=== PATIENT | female | born 1965 | race Caucasian/White ===

== ENCOUNTER 2017-07-26 02:58 | Inpatient (IN) | payer OTHER ==
[2017-07-26] MEDS ORDERED: Ondansetron 4 MG/2 ML SDV IVPUSH ONE (03:32)
[2017-07-26] MEDS ORDERED: HYDROmorphone 0.5 MG/0.5 ML Syringe IVPUSH ONE (03:32)
--- NOTE | 2017-07-26 03:38 | EDM.PDOC ---
ED HPI GENERAL MEDICAL PROBLEM - General Chief Complaint: Abdominal Pain Stated Complaint: ABD PAIN Time Seen by Provider: 07/26/17 03:20 Source of Information: Reports: Patient History Limitations: Reports: No Limitations - History of Present Illness INITIAL COMMENTS - FREE TEXT/NARRATIVE: 51-year-old female with upper abdominal pain, fairly severe for the past 4-6 hours. This is the third episode of pain she's had in the last month, the first being 3 weeks ago. It lasted several hours, she vomited twice and the pain resolved. 5 days ago she had a fairly extended period of pain where she vomited several times but the pain did not go away until it slowly disappeared in the morning. Tonight the pain recurs, is fairly significant and is persistent. She has vomited twice tonight. No fevers or chills, no radiation of pain to the back or shoulder. No previous abdominal surgeries. No shortness of breath or urinary symptoms. Pain starts usually generalized and then intensifies into her upper abdomen. Onset: Gradual Duration: Hour(s): (6 hours ago) Location: Reports: Abdomen Quality: Reports: Ache, Stabbing Severity: Moderate Improves with: Reports: None Worsens with: Reports: None Associated Symptoms: Reports: Nausea/Vomiting Abdominal Pain Score (Numeric/FACES): 8 - Related Data Allergies Allergy/AdvReac Type Severity Reaction Status Date / Time No Known Allergies Allergy Verified 07/26/17 03:11 Home Meds: Home Meds Calcium Carbonate [Calcium] 600 mg PO DAILY 07/26/17 [History] Levothyroxine Sodium [Synthroid] 75 mcg PO DAILY 07/26/17 [History] Past Medical History HEENT History: Reports: Impaired Vision Respiratory History: Reports: Asthma BILLING TYPIST History: Reports: Endocrine/Metabolic History: Reports: Hypothyroidism Dermatologic History: Reports: Eczema - Infectious Disease History Infectious Disease History: Reports: Chicken Pox Social & Family History - Tobacco Use Smoking Status *Q: Never Smoker Second Hand Smoke Exposure: No - Caffeine Use Caffeine Use: Reports: Coffee, Soda - Recreational Drug Use Recreational Drug Use: No ED ROS GENERAL - Review of Systems Review Of Systems: See Below Constitutional: Denies: Fever, Chills Respiratory: Denies: Shortness of Breath, Hemoptysis GI/Abdominal: Reports: Abdominal Pain, Nausea, Vomiting. Denies: Constipation, Diarrhea : Reports: No Symptoms Musculoskeletal: Reports: No Symptoms Skin: Reports: No Symptoms Neurological: Reports: No Symptoms Psychiatric: Reports: No Symptoms ED EXAM, GI/ABD - Physical Exam Exam: See Below Exam Limited By: No Limitations General Appearance: Alert, Mild Distress Eyes: Bilateral: Normal Appearance (No jaundice) Respiratory/Chest: No Respiratory Distress, Lungs Clear Cardiovascular: Regular Rate, Rhythm GI/Abdominal Exam: Soft, Tender (She is very tender to palpation in the right upper quadrant, would consider a positive Ly's sign). No: Normal Bowel Sounds (Bowel sounds are hypoactive) Back Exam: No: CVA Tenderness (R), CVA Tenderness (L) Neurological: Alert, Oriented Psychiatric: Anxious Skin Exam: Warm, Dry Course - Vital Signs Last Recorded V/S: Last Vital Signs Temp 98.5 F 07/27/17 14:56 Pulse 61 07/27/17 14:56 Resp 18 07/27/17 14:56 BP 130/82 07/27/17 14:56 Pulse Ox 97 07/27/17 14:56 - Orders/Labs/Meds Orders: Medication Orders Acetaminophen (Tylenol) 650 mg PO Q4H PRN PRN Reason: Pain Last Admin: 07/26/17 10:58 Dose: 650 mg Hydrocodone Bitart/Acetaminophen (Printer 325-5 Mg) 1 - 2 tab PO Q4H PRN PRN Reason: PAIN Hydromorphone HCl (Dilaudid Photogrammetric Surveyor 15 Mg In Ns 30 Ml) 0 mg IV ASDIRECTED PRN; Protocol PRN Reason: LEACH RUNNER PAIN CONTROL Last Admin: 07/26/17 15:03 Dose: 15 mg Sodium Chloride (Normal Saline) 1,000 mls @ 150 mls/hr IV ASDIRECTED RAFA Last Admin: 07/26/17 03:50 Dose: 150 mls/hr Dextrose/Lactated Ringer's (Dextrose 5%-Lactated Ringers) 1,000 mls @ 100 mls/ hr IV ASDIRECTED RAFA Last Admin: 07/27/17 07:14 Dose: 100 mls/hr Infusion: 07/27/17 04:55 Dose: 100 mls/hr Admin: 07/26/17 18:55 Dose: 100 mls/hr Infusion: 07/26/17 18:00 Dose: 100 mls/hr Admin: 07/26/17 08:00 Dose: 100 mls/hr Ampicillin Sodium/Sulbactam (Sodium 3 gm/ Sodium Chloride) 100 mls @ 200 mls/ hr IV Q6H [facility] Last Admin: 07/27/17 16:12 Dose: 200 mls/hr Admin: 07/27/17 09:00 Dose: 200 mls/hr Admin: 07/27/17 04:48 Dose: 200 mls/hr Admin: 07/26/17 22:02 Dose: 200 mls/hr Admin: 07/26/17 15:43 Dose: 200 mls/hr Admin: 07/26/17 10:36 Dose: 200 mls/hr Aztreonam/Dextrose 1 gm/ (Premix) 50 mls @ 100 mls/hr IV Q8H [facility] Last Admin: 07/27/17 10:52 Dose: 100 mls/hr Infusion: 07/27/17 04:29 Dose: 100 mls/hr Admin: 07/27/17 03:59 Dose: 100 mls/hr Infusion: 07/26/17 18:40 Dose: 100 mls/hr Admin: 07/26/17 18:10 Dose: 100 mls/hr Infusion: 07/26/17 11:48 Dose: 100 mls/hr Admin: 07/26/17 11:18 Dose: 100 mls/hr Metoclopramide HCl (Reglan) 10 mg IVPUSH Q6H [facility] Last Admin: 07/27/17 12:04 Dose: 10 mg Naloxone HCl (Narcan) 0.1 mg IV ASDIRECTED PRN PRN Reason: decreased respiratory rate Scopalamine Patch (Check) 0 each TOP DAILY [facility] Ondansetron HCl (Zofran) 4 mg IVPUSH Q4H PRN PRN Reason: NAUSEA Last Admin: 07/27/17 04:04 Dose: 4 mg Pantoprazole Sodium (Protonix Iv) 40 mg IV Q24H [facility] Last Admin: 07/27/17 10:52 Dose: 40 mg Admin: 07/26/17 10:41 Dose: 40 mg Scopolamine (Transderm-Scop) 1.5 mg TOP Q72H [facility] Labs: Laboratory Tests 07/26/17 07/26/17 Range/Units 03:43 03:43 WBC 10.7 (4.5-11.0) K/uL RBC 4.67 (3.30-5.50) M/uL Hgb 14.6 (12.0-15.0) g/dL Hct 42.9 (36.0-48.0) % MCV 92 (80-98) fL MCH 31 (27-31) pg MCHC 34 (32-36) % Plt Count 320 (150-400) K/uL Neut % (Auto) 81 H (36-66) % Lymph % (Auto) 12 L (24-44) % [place] % (Auto) 7 H (2-6) % Eos % (Auto) 1 L (2-4) % Baso % (Auto) 0 (0-1) % Sodium 141 (140-148) mmol/L Potassium 3.8 (3.6-5.2) mmol/L Chloride 104 (100-108) mmol/L Carbon Dioxide 26 (21-32) mmol/L Anion Gap 11.3 (5.0-14.0) mmol/L BUN 19 H (7-18) mg/dL Creatinine 0.8 (0.6-1.0) mg/dL Est Cr Clr Drug Dosing 60.43 mL/min Estimated GFR (MDRD) > 60 (>60) Glucose 105 (74-106) mg/dL Calcium 8.7 (8.5-10.1) mg/dL Total Bilirubin 2.0 H (0.2-1.0) mg/dL AST 378 H (15-37) U/L ALT 283 H (12-78) U/L Alkaline Phosphatase 127 H (46-116) U/L Total Protein 7.3 (6.4-8.2) g/dL Albumin 3.4 (3.4-5.0) g/dL Globulin 3.9 H (2.3-3.5) g/dL Albumin/Globulin Ratio 0.9 L (1.2-2.2) Amylase 575 H (25-115) U/L Lipase 8312 H (73-393) U/L Meds: Medications Generic Name Dose Route Start Last Admin Trade Name Freq PRN Reason Stop Dose Admin Acetaminophen 650 mg 07/26/17 10:49 07/26/17 10:58 Tylenol PO 650 mg Q4H PRN Administration Pain Hydrocodone Bitart/Acetaminophen 1 - 2 tab 07/27/17 10:51 Printer 325-5 Mg PO Q4H PRN PAIN Hydromorphone HCl 0 mg 07/26/17 09:16 07/26/17 15:03 Dilaudid Photogrammetric Surveyor 15 Mg In Ns 30 Ml IV 15 mg ASDIRECTED PRN Administration LEACH RUNNER PAIN CONTROL Protocol Sodium Chloride 1,000 mls @ 150 mls/hr 07/26/17 03:45 07/26/17 03:50 Normal Saline IV 150 mls/hr ASDIRECTED RAFA Administration Dextrose/Lactated Ringer's 1,000 mls @ 100 mls/hr 07/26/17 09:30 07/27/17 07: 14 Dextrose 5%-Lactated Ringers IV 100 mls/hr ASDIRECTED RAFA Administration Ampicillin Sodium/Sulbactam 100 mls @ 200 mls/hr 07/26/17 10:00 07/27/17 16: 12 Sodium 3 gm/ Sodium Chloride IV 200 mls/hr Q6H RAFA Administration Aztreonam/Dextrose 1 gm/ 50 mls @ 100 mls/hr 07/26/17 11:00 07/27/17 10:52 Premix IV 100 mls/hr Q8H RAFA Administration Metoclopramide HCl 10 mg 07/27/17 12:00 07/27/17 12:04 Reglan IVPUSH 10 mg Q6H RAFA Administration Naloxone HCl 0.1 mg 07/26/17 09:16 Narcan IV ASDIRECTED PRN decreased respiratory rate Scopalamine Patch 0 each 07/28/17 09:00 Check TOP DAILY RAFA Ondansetron HCl 4 mg 07/26/17 09:19 07/27/17 04:04 Zofran IVPUSH 4 mg Q4H PRN Administration NAUSEA Pantoprazole Sodium 40 mg 07/26/17 10:00 07/27/17 10:52 Protonix Iv IV 40 mg Q24H RAFA Administration Scopolamine 1.5 mg 07/30/17 09:00 Transderm-Scop TOP Q72H RAFA Discontinued Medications Generic Name Dose Route Start Last Admin Trade Name Freq PRN Reason Stop Dose Admin Bupivacaine HCl/Epinephrine Bitart 20 ml 07/27/17 09:15 07/27/17 09:15 Marcaine 0.5%/Epinephrine 1:200,000 INJECT 07/27/17 09:16 20 ml .STK-MED ONE Administration Dexamethasone Confirm 07/27/17 07:10 Dexamethasone Administered 07/27/17 07:11 Dose 4 mg .ROUTE .STK-MED ONE Fentanyl Citrate Confirm 07/27/17 07:10 Fentanyl Administered 07/27/17 07:11 Dose 500 mcg .ROUTE .STK-MED ONE Glycopyrrolate Confirm 07/27/17 07:10 Robinul Administered 07/27/17 07:11 Dose 1 mg .ROUTE .STK-MED ONE Hydromorphone HCl 0.5 mg 07/26/17 03:32 07/26/17 03:53 Dilaudid IVPUSH 07/26/17 03:33 0.5 mg ONETIME ONE Administration Hydroxyzine HCl 100 mg 07/27/17 10:09 07/27/17 10:20 Vistaril IM 07/27/17 10:10 100 mg ONETIME ONE Administration Sodium Chloride 70 mls @ 3 mls/sec 07/26/17 04:58 07/26/17 05:10 Normal Saline IV 07/26/17 04:59 3 mls/sec ASDIRECTED ONE Administration Iopamidol 100 ml 07/26/17 04:58 07/26/17 05:10 Isovue-300 (61%) IV 100 ml . DIRECTED PRN Administration RADIOLOGY EXAM Metoclopramide HCl 10 mg 07/27/17 06:52 07/27/17 07:14 Reglan IV 07/27/17 06:53 10 mg ONETIME ONE Administration Neostigmine Methylsulfate Confirm 07/27/17 07:10 Neostigmine Administered 07/27/17 07:11 Dose 5 mg .ROUTE .STK-MED ONE Ondansetron HCl 4 mg 07/26/17 03:32 07/26/17 03:51 Zofran IVPUSH 07/26/17 03:33 4 mg ONETIME ONE Administration Ondansetron HCl Confirm 07/27/17 07:10 Zofran Administered 07/27/17 07:11 Dose 4 mg .ROUTE .STK-MED ONE Propofol Confirm 07/27/17 07:10 Diprivan 20 Ml Administered 07/27/17 07:11 Dose 200 mg .ROUTE .STK-MED ONE Rocuronium [place] Confirm 07/27/17 07:10 Zemuron Administered 07/27/17 07:11 Dose 50 mg .ROUTE .STK-MED ONE Scopolamine Confirm 07/27/17 07:11 Transderm-Scop Administered 07/27/17 07:12 Dose 1.5 mg .ROUTE .STK-MED ONE Succinylcholine Chloride Confirm 07/27/17 07:10 Quelicin Administered 07/27/17 07:11 Dose 200 mg .ROUTE .STK-MED ONE - Re-Assessments/Exams Free Text/Narrative Re-Assessment/Exam: 07/26/17 03:38 An IV was placed, patient was given 0.5 mg of Dilaudid and 4 mg of Zofran IV. CBC, CMP, amylase and lipase were obtained. 07/26/17 04:18 The IV medications markedly improved her discomfort. Her labs returned very abnormal with a bilirubin of 2.0, elevated liver enzymes, elevated lipase and amylase. Because of the pancreatic involvement a CT with IV contrast of the abdomen and pelvis was obtained. 07/26/17 05:58 CT confirmed cholecystitis and cholelithiasis. There was no evidence of pancreatitis on the CT or other abnormality. The case was discussed with Dr. Gilmore. Departure - Departure Time of Disposition: 07:39 Disposition: Admitted As Inpatient 67 Condition: Fair Clinical Impression: Cholecystitis Abdominal pain Qualifiers: Abdominal location: upper abdomen, unspecified Qualified Code(s): R10.10 - Upper abdominal pain, unspecified - Discharge Information
[2017-07-26] MEDS ORDERED: Sodium Chloride 0.9% 1,000 ML IV SCH (03:45)
[2017-07-26] MEDS ORDERED: Iopamidol 612 MG/ML 100 ML Bottle IV PRN (04:58)
[2017-07-26] MEDS: Dextrose 5%-Lactated Ringers 1,000 ML IV SCH ×2 (08:00→18:55)
[2017-07-26] MEDS ORDERED: Naloxone 0.4 MG/ML SDV IV PRN (09:16)
[2017-07-26] MEDS ORDERED: HYDROmorphone/Normal Saline 15 MG/30 ML PCA IV PRN (09:16)
[2017-07-26] MEDS ORDERED: Ondansetron 4 MG/2 ML SDV IVPUSH PRN (09:19)
[2017-07-26] MEDS: Ampicillin/Sulbactam Na 3 GM in Sodium Chloride 0.9% 100 ML IV SCH ×3 (10:36→22:02)
[2017-07-26] MEDS: Pantoprazole 40 MG Vial IV SCH (10:41)
[2017-07-26] MEDS: Acetaminophen 325 MG Tab PO PRN (10:58)
[2017-07-26] MEDS: Aztreonam/Dextrose-Water 1 GM in Premix Bag 1 BAG IV SCH ×2 (11:18→18:10)
[2017-07-27] MEDS: Aztreonam/Dextrose-Water 1 GM in Premix Bag 1 BAG IV SCH ×3 (03:59→18:10)
[2017-07-27] MEDS: Ampicillin/Sulbactam Na 3 GM in Sodium Chloride 0.9% 100 ML IV SCH ×4 (04:48→21:00)
[2017-07-27] MEDS ORDERED: Metoclopramide 10 MG/2 ML SDV IV ONE (06:52)
[2017-07-27] MEDS ORDERED: Neostigmine Methylsulfate 1 MG/ML 5 ML Syringe ONE (07:10)
[2017-07-27] MEDS ORDERED: Rocuronium 50 MG/5 ML Vial ONE (07:10)
[2017-07-27] MEDS ORDERED: Glycopyrrolate 0.2 MG/ML 5 ML MDV ONE (07:10)
[2017-07-27] MEDS ORDERED: Succinylcholine 200 MG/10 ML MDV ONE (07:10)
[2017-07-27] MEDS ORDERED: Propofol 200 MG/20 ML SDV ONE (07:10)
[2017-07-27] MEDS ORDERED: Dexamethasone 4 MG/ML SDV ONE (07:10)
[2017-07-27] MEDS ORDERED: Ondansetron 4 MG/2 ML SDV ONE (07:10)
[2017-07-27] MEDS ORDERED: Scopolamine 1.5 MG Transdermal Patch ONE (07:11)
[2017-07-27] MEDS: Dextrose 5%-Lactated Ringers 1,000 ML IV SCH ×2 (07:14→20:52)
[2017-07-27] MEDS ORDERED: Bupivacaine 0.5%/EPINEPHrine 1:200,000 50 ML MDV INJECT ONE (09:15)
[2017-07-27] MEDS ORDERED: hydrOXYzine HCl 100 MG/2 ML SDV IM ONE (10:09)
[2017-07-27] MEDS ORDERED: Acetaminophen/HYDROcodone 325-5 MG Tab PO PRN (10:51)
[2017-07-27] MEDS: Pantoprazole 40 MG Vial IV SCH (10:52)
[2017-07-27] MEDS: Metoclopramide 10 MG/2 ML SDV IVPUSH SCH ×2 (12:04→17:56)
--- NOTE | 2017-07-27 12:45 | CONS ---
DATE OF SERVICE: 07/26/2017 REFERRING PHYSICIAN: CONSULTING PHYSICIAN: Vadim Gilmore MD HISTORY: This is a 51-year-old, otherwise previously healthy female, presenting to the emergency room with upper abdominal pain radiating to the back. She has had 2 or 3 similar episodes in the past few weeks similar to this. The workup included a CT scan of the abdomen which showed distended gallbladder with pericholecystic fluid. Her amylase and lipase were quite elevated as well, so this would indicate we are likely dealing with a gallstone pancreatitis. Of note, her bilirubin is 2.0 and liver function tests were otherwise mildly up as well. PAST MEDICAL HISTORY: Her past medical history has been remarkable only for some treated hypothyroidism. PAST SURGICAL HISTORY: No previous abdominal surgeries. Medications, allergies, family history, and social history are as per the computer record. PHYSICAL EXAMINATION: VITAL SIGNS: The patient is presently afebrile with stable vital signs. HEENT: Unremarkable. HEART: Regular rhythm with normal S1 and S2. LUNGS: Clear. BREASTS: Exam deferred. ABDOMEN: Shows moderate tenderness across the upper abdomen, more prominently in the epigastrium and right upper quadrant. IMPRESSION: Gallstone pancreatitis. PLAN: Treat the patient with only some sips of clear liquids, IV hydration, and recheck some labs in the morning. We will initiate some IV antibiotics as well. I guess there may be some acuteness of the cholecystitis given the CT findings. We will recheck labs in the morning. If the patient clinically is stable, and the amylase and lipase are improving, we will likely proceed with a cholecystectomy tomorrow. Vadim Gilmore MD /[id number]
[2017-07-28] MEDS: Metoclopramide 10 MG/2 ML SDV IVPUSH SCH
[2017-07-28] MEDS: Aztreonam/Dextrose-Water 1 GM in Premix Bag 1 BAG IV SCH (02:59)
[2017-07-28] MEDS: Ampicillin/Sulbactam Na 3 GM in Sodium Chloride 0.9% 100 ML IV SCH (04:01)
[2017-07-28 07:57] VITALS: BP 117/75
[2017-07-28] MEDS ORDERED: SCOPALAMINE PATCH CHECK TOP SCH (09:00)
--- NOTE | 2017-07-28 09:08 | PN ---
DATE OF SERVICE: 07/27/2017 The patient has been clinically stable overnight. The lipase and amylase have come down to, fairly close to normal. Interestingly, her bilirubin is slightly higher at 3.0. She is not tender at this point over the abdomen but still does have some nausea and emesis. Based on the preoperative CT scan showing a markedly thick-walled gallbladder with pericholecystic fluid, the bilirubin will likely be related to more of an acute cholecystitis rather than a common bile duct stone, although the latter certainly is a possibility. Given the clinical lack of any significant tenderness and the near normalization of the amylase and lipase levels, we will proceed with a cholecystectomy today but generally I would prefer not to get a cholangiogram in this setting as this may exacerbate the pancreatitis but we will evaluate that as initially intraoperatively. Potential risks of procedure including bleeding, infection, injury to underlying viscera, possible migration of or persistence of common bile duct stones requiring additional procedures such as an ERCP for correction were all reviewed, and the patient wishes to proceed. The surgery will be later this morning. Vadim Gilmore MD /[id number]
[2017-07-28] MEDS: Acetaminophen 325 MG Tab PO PRN (09:45)
--- NOTE | 2017-07-29 03:49 | DISCH ---
ADMISSION DIAGNOSES: 1. Abdominal pain. 2. Cholecystitis. 3. Gallstone pancreatitis. DISCHARGE DIAGNOSES: 1. Laparoscopic cholecystectomy with drainage of pericholecystic fluid collection for subacute cholecystitis and cholelithiasis. 2. Severe pancreatitis. 3. Gallstone pancreatitis. 4. Inflammatory pericholecystic fluid collection. DATE OF SURGERY: 07/27/2017. SURGEON: Vadim Gilmore MD. HISTORY: Leticia Noel is a 51-year-old female who presented to the ER on 07/26/2017. After preoperative evaluation and discussion of possible risks and possible complications, she wished to proceed with surgical procedure. HOSPITAL COURSE: Surgery was on 07/27/2017. She had no operative complications. On postop day #1, her activity was good. She tolerated her diet well. Vital signs were stable and pain controlled and she was able to be discharged to home. PHYSICAL EXAMINATION: GENERAL: Leticia Noel is a 51-year-old female. VITAL SIGNS: TPR is 98.8, 48, 16. Blood pressure 121/71. HEENT: Negative. NECK: Supple. HEART: Regular rate and rhythm. LUNGS: Clear. ABDOMEN: Dressings are dry and intact. The JACKSON drain is draining a light brown drainage, questionable bilious. EXTREMITIES: Without peripheral edema. DISPOSITION: Discharged to home. CONDITION: Stable and improving. FOLLOWUP APPOINTMENT: With Vadim Gilmore MD on 07/30/2017 at 9:30 a.m. She is to have a CMP drawn at 9 a.m. NEW PRESCRIPTIONS: [place] 5/325 mg take 1 to 2 every 4 hours p.r.n. pain #50; scopolamine patch, she is to remove that on Friday07/30/2017. Resume home medications. Calcium carbonate 600 mg oral daily, Synthroid 75 mcg oral daily. DISCHARGE DIET: Usual diet as tolerated. Drink 8 to 10 glasses of water a day. ACTIVITY: No lifting over 10 pounds for 2 weeks[address]riving, do not drive while on pain medication. Shower/bathing, may shower. Notify provider if any fever, increased pain, nauseas or vomiting. Wound incision care, keep site clean and dry. Wear abdominal binder for 2 weeks and then as tolerated. Use incentive spirometer 10 times every hour while awake for 1 week. To empty and record JACKSON drainage and no color, as directed, do 4 times daily.
[2017-07-30] MEDS ORDERED: Scopolamine 1.5 MG Transdermal Patch TOP SCH (09:00)
--- NOTE | 2017-07-31 12:21 | OR ---
DATE OF PROCEDURE: 07/26/2017 PREOPERATIVE DIAGNOSES: 1. Chronic cholecystitis and cholelithiasis status post gallstone pancreatitis. 2. CT scan showing peripancreatic fluid collection. POSTOPERATIVE DIAGNOSES: 1. Subacute and chronic cholecystitis and cholelithiasis, status post gallstone pancreatitis. 2. Inflammatory pericholecystic fluid collection. OPERATIVE PROCEDURE: 1. Diagnostic laparoscopy with a laparoscopic cholecystectomy ([id number]). 2. Drainage of peripancreatic inflammatory fluid collection ([id number]). ANESTHESIA: General. INDICATION FOR PROCEDURE: A 51-year-old female presenting earlier this weekend with gallstone pancreatitis. Clinically and by lab standards, she is nearly resolved of the problem and she still remains somewhat tender over the gallbladder but at this point appears to warrant a cholecystectomy. Of note, her bilirubin is still somewhat high at 3. However, the preoperative CAT scan at the time of admission showed marked gallbladder distention. There was also a pericholecystic fluid collection noted by the radiologist on the CT scan, so there is a significant likelihood that the bilirubin is elevated based on the acuteness of the cholecystitis, as opposed to common bile duct stone. The plan is to proceed with a cholecystectomy. Potential risks of the procedure including bleeding, infection, injury to common bile duct or other adjacent structures, possibility that the stone may either migrate or be present in the common bile duct that might cause recurrent pancreatitis and/or require additional procedures for correction were gone over, and the patient wishes to proceed. DETAILS OF THE PROCEDURE: The patient were taken to the operating room and placed in a supine position. After general endotracheal anesthesia was induced, the abdomen was prepped and draped. A transverse epigastric incision was made and the peritoneal cavity entered under direct vision with an Optiview trocar, inflated to 15 mmHg pressure with CO2. Laparoscope was reinserted. No underlying trocar insertion site injuries were seen. Following this, a 12-mm subumbilical trocar was placed, along with a right upper quadrant 5 mm trocar, and the upper abdomen examined. As expected, the patient was noted to have marked distention of the gallbladder and this was thick-walled. Posterior to this, as the gallbladder was lifted up, was a thin purulent fluid collection measuring around 15-20 mL. This was evacuated and sent for culture. This was associated with an intense peritonitis in the peritoneal surfaces, at which the fluid collection had occupied. At this point the gallbladder was retracted anteriorly and laterally. Dissection of the gallbladder neck continued with Harmonic scalpel, and the dissection was then taken down to the level of the gallbladder neck/cystic duct junction. Once that area was well identified, as was the cystic artery, both structures were clipped 3 times proximally and once distally, and the gallbladder dissected off the gallbladder bed. During the course of the dissection, some additional vasculature was noted in the area of the upper gallbladder neck, which was clipped additionally. The specimen was then delivered from the field through the epigastric trocar site and contained a multitude of a fairly small stones. The area of dissection was then inspected. No bleeding or bile problems were noted. A Apolinar-Hinson drain was then placed in through the right lateral trocar site and positioned into the area of the inflammatory fluid collection and adjacent to the gallbladder fossa. The trocars were then sequentially removed. The fascia at the 12-mm site was closed with 0 Vicryl stitch and the skin with 4-0 Vicryl skin stitch. Dressing was applied. The patient was taken to the recovery room in satisfactory condition. Vadim Gilmore MD /[id number]
== END 2017-07-28 10:42 | disposition home or self-care (01) | DRG 417 ==
LOC: JP.ED 02:58 → JP.2SS 07:05
PROVIDERS: ADMIT Surgery; ATTEND Surgery
PROC: 0D9W4ZX Drainage of Peritoneum, Percutaneous Endoscopic Approach, Diagnostic (ICD-10-PCS; principal; 2017-07-27)
PROC: 0FT44ZZ Resection of Gallbladder, Percutaneous Endoscopic Approach (ICD-10-PCS; principal; 2017-07-27)
DX: K80.00 Calculus of gallbladder with acute cholecystitis without obstruction (principal); K85.10 Biliary acute pancreatitis without necrosis or infection; E03.9 Hypothyroidism, unspecified
CPT/HCPCS: 36415; 74177; 80053; 82150; 83690; 83735; 84100; 84443; 85025; 85027; 87070; 87075; 87205; 88304; 94762; 96361; 96374; 99284-25; A9270-GY; C9113; J0295; J0330; J1100; J1170; J2405; J2704; J2710; J2765; J3010; J3410; J3490; J7030; J7040; J7042; Q9967